=== PATIENT | female | born 1985 | race Caucasian/White ===

== ENCOUNTER 2017-11-07 11:09 | Emergency (ER) | payer MEDICAID | END 2017-11-07 14:07 | disposition home or self-care (01) | LOC: D.ER 11:09 | DX: G43.909 Migraine, unspecified, not intractable, without status migrainosus (principal) ==

== ENCOUNTER 2018-10-01 01:58 | Emergency (ER) | payer SELFPAY ==
[~2018-10-01] VITALS: Ht 152.4 cm; Wt 73.0 kg
[2018-10-01 02:04] VITALS: Ht 152.4 cm; Wt 73.0 kg
[2018-10-01] MEDS ORDERED: NEURONTIN600 MG PO (02:06)
[2018-10-01] MEDS ORDERED: PROZAC20 MG PO (02:06)
[2018-10-01 03:13] LABS: BASOPHILS 0.6 % (0-2); EOSINOPHILS 3.3 % (0-7); HEMATOCRIT 42.6 % (36.0-48.0); HEMOGLOBIN 13.7 g/dL (12-16); IMMATURE GRANULOCYTES 0.2 % (0-5); LYMPHOCYTES 20.2 % (15-50); MCH 28.1 pg (26.0-34.0); MCHC 32.2 g/dL (31.0-37.0); MCV 87.5 fL (80.0-100.0); MONOCYTES 14.3 % (2-11); NEUTROPHILS 61.4 % (40-80); PLATELET COUNT 237 10x3/uL (130-400); RBC 4.87 10x6/uL (4.00-5.40); RDW 16.8 % (11.5-14.5); WBC 10.9 10x3/uL (4.8-10.8)
[2018-10-01 03:24] LABS: HCG URINE NEGATIVE (NEGATIVE)
[2018-10-01 03:25] LABS: UDS - AMPHET POSITIVE QUAL (NEGATIVE); UDS - BARB NEGATIVE QUAL (NEGATIVE); UDS - BENZO POSITIVE QUAL (NEGATIVE); UDS - COCAINE NEGATIVE QUAL (NEGATIVE); UDS - OPIATE NEGATIVE QUAL (NEGATIVE); UDS - PCP NEGATIVE QUAL (NEGATIVE); UDS - THC POSITIVE QUAL (NEGATIVE)
[2018-10-01 03:27] LABS: APPEARANCE CLEAR (CLEAR); BILIRUBIN NEGATIVE (NEGATIVE); COLOR YELLOW (YELLOW); GLUCOSE NEGATIVE (NEGATIVE); KETONE NEGATIVE (NEGATIVE); NITRITE NEGATIVE (NEGATIVE); PROTEIN 2+ mg/dL (NEGATIVE); SPECIFIC GRAVITY 1.025 (1.005-1.020); UROBILINOGEN NORMAL (NORMAL)
[2018-10-01 03:29] LABS: BACTERIA FEW /hpf (NONE SEEN); EPITHELIAL CELLS 0-5 /hpf (0-5); RED CELLS - URINE 0-5 /hpf (0-5); WHITE CELLS - URINE 0-5 /hpf (0-5)
[2018-10-01 03:32] LABS: ALKALINE PHOSPHATASE 61 U/L (46-116); ALT (SGPT) 24 U/L (10-68); CALC OSMOLALITY 274 mosm/kg (275-300); CALCIUM 9.1 mg/dL (8.5-10.1); CARBON DIOXIDE 28.5 mmol/L (21.0-32.0); CHLORIDE - SERUM 101 mmol/L (98-107); CREATININE - SERUM 0.9 mg/dL (0.6-1.3); GLUCOSE 87 mg/dL (74-106); POTASSIUM - SERUM 3.6 mmol/L (3.5-5.1); PROTEIN - SERUM 8.2 g/dL (6.4-8.2); SODIUM 139 mmol/L (136-145); UREA NITROGEN 8 mg/dL (7-18); eGFR NON AFRICAN AMERICAN 76 mL/min (90-120)
[2018-10-01 06:02] VITALS: BP 120/78
== END 2018-10-01 06:53 | disposition home or self-care (01) ==
LOC: D.ER 01:58
PROVIDERS: Family Medicine
DX: R45.851 Suicidal ideations (principal); F41.9 Anxiety disorder, unspecified; F32.9 Major depressive disorder, single episode, unspecified; F19.10 Other psychoactive substance abuse, uncomplicated; F17.200 Nicotine dependence, unspecified, uncomplicated

== ENCOUNTER 2018-10-03 12:23 | Emergency (ER) | payer SELFPAY ==
[~2018-10-03] VITALS: Ht 152.4 cm; Wt 72.7 kg
[~2018-10-03 12:23] MED LIST: NEURONTIN600 MG PO; PROZAC20 MG PO
[2018-10-03 12:26] VITALS: Ht 152.4 cm; Wt 72.7 kg
[2018-10-03 12:51] LABS: BASOPHILS 0.5 % (0-2); EOSINOPHILS 2.9 % (0-7); HEMATOCRIT 35.9 % (36.0-48.0); HEMOGLOBIN 11.5 g/dL (12-16); IMMATURE GRANULOCYTES 0.2 % (0-5); LYMPHOCYTES 17.6 % (15-50); MCV 84.3 fL (80.0-100.0); MEAN PLATELET VOLUME 12.7 fL (7.4-10.4); MONOCYTES 16.2 % (2-11); NEUTROPHILS 62.6 % (40-80); PLATELET COUNT 219 10x3/uL (130-400); RBC 4.26 10x6/uL (4.00-5.40); RDW 16.3 % (11.5-14.5); WBC 12.8 10x3/uL (4.8-10.8)
[2018-10-03 13:00] LABS: HCG SERUM NEGATIVE (NEGATIVE)
[2018-10-03 13:09] LABS: ALBUMIN 3.6 g/dL (3.4-5.0); ALKALINE PHOSPHATASE 47 U/L (46-116); ALT (SGPT) 34 U/L (10-68); BILIRUBIN - TOTAL 0.44 mg/dL (0.2-1.3); CALC OSMOLALITY 273 mosm/kg (275-300); CALCIUM 8.5 mg/dL (8.5-10.1); CARBON DIOXIDE 24.6 mmol/L (21.0-32.0); CHLORIDE - SERUM 100 mmol/L (98-107); CREATININE - SERUM 0.8 mg/dL (0.6-1.3); PROTEIN - SERUM 7.3 g/dL (6.4-8.2); SODIUM 136 mmol/L (136-145); UREA NITROGEN 24 mg/dL (7-18); eGFR NON AFRICAN AMERICAN 87 mL/min (90-120)
[2018-10-03 13:10] LABS: GLUCOSE 67 mg/dL (74-106); POTASSIUM - SERUM 4.5 mmol/L (3.5-5.1)
[2018-10-03] MEDS ORDERED: FLAGYL500 MG PO (13:46)
[2018-10-03] MEDS ORDERED: VIBRAMYCIN 100100 MG PO (13:46)
[2018-10-03 14:47] LABS: APPEARANCE CLEAR (CLEAR); BILIRUBIN NEGATIVE (NEGATIVE); COLOR YELLOW (YELLOW); GLUCOSE NEGATIVE (NEGATIVE); KETONE NEGATIVE (NEGATIVE); NITRITE NEGATIVE (NEGATIVE); PROTEIN TRACE mg/dL (NEGATIVE); UROBILINOGEN NORMAL (NORMAL)
[2018-10-03 14:48] LABS: BACTERIA FEW /hpf (NONE SEEN); EPITHELIAL CELLS 0-5 /hpf (0-5); MUCUS <1+ /lpf (NONE SEEN); RED CELLS - URINE 0-5 /hpf (0-5); WHITE CELLS - URINE 0-5 /hpf (0-5)
[2018-10-03 15:15] LABS: UDS - AMPHET POSITIVE QUAL (NEGATIVE); UDS - BARB NEGATIVE QUAL (NEGATIVE); UDS - BENZO POSITIVE QUAL (NEGATIVE); UDS - COCAINE NEGATIVE QUAL (NEGATIVE); UDS - OPIATE POSITIVE QUAL (NEGATIVE); UDS - PCP NEGATIVE QUAL (NEGATIVE); UDS - THC POSITIVE QUAL (NEGATIVE)
[2018-10-03 19:58] VITALS: BP 98/57
[2018-10-09 19:09] LABS: CHLAMYDIA TRACHOMATIS, NAA Negative (Negative)
== END 2018-10-03 19:58 | disposition home or self-care (01) ==
LOC: D.ER 12:23
PROVIDERS: Emergency Medicine
DX: F15.10 Other stimulant abuse, uncomplicated (principal); N73.9 Female pelvic inflammatory disease, unspecified; F17.200 Nicotine dependence, unspecified, uncomplicated

== ENCOUNTER 2018-10-08 20:48 | Emergency (ER) | payer SELFPAY ==
[~2018-10-08] VITALS: Ht 152.4 cm; Wt 65.0 kg
[~2018-10-08 20:48] MED LIST changes: +FLAGYL500 MG PO; +VIBRAMYCIN 100100 MG PO
[2018-10-08 20:53] VITALS: Ht 152.4 cm; Wt 65.0 kg
[2018-10-08 22:07] VITALS: BP 142/88
== END 2018-10-08 22:07 | disposition home or self-care (01) ==
LOC: D.ER 20:48
DX: F15.10 Other stimulant abuse, uncomplicated (principal); F41.9 Anxiety disorder, unspecified